=== PATIENT | male | born 1990 | race Caucasian/White ===

== ENCOUNTER 2017-03-19 00:15 | Emergency (ER) | payer SELFPAY ==
[~2017-03-19] VITALS: Ht 157.5 cm; Wt 63.6 kg
[2017-03-19 00:21] VITALS: Ht 157.5 cm; Wt 63.6 kg
[2017-03-19] MEDS ORDERED: ACETAMINOPHEN 500 MG TAB PO STA (06:16)
--- NOTE | 2017-03-19 06:45 | RADRPT ---
PROCEDURE: XR Chest. CLINICAL INDICATION: Chest pain TECHNIQUE: A single AP view of the chest was obtained. COMPARISON: None. FINDINGS: No focal airspace opacification, pleural effusion or pneumothorax is seen. The cardiomediastinal si lhouette is within normal limits for size. The osseous structures are unremarkable. IMPRESSION: No radiographic evidence of acute cardiopulmonary disease. RPTAT: HH .Tanya Bruno MD, MD Date Time Electronically viewed and signed by .Tanya Bruno MD, on 03/19/2017 06:45 .G/
[2017-03-19] MEDS ORDERED: ACET325T33 PO (07:19)
[2017-03-19] MEDS ORDERED: IBUP-1542 PO (07:19)
[2017-03-19 08:06] VITALS: BP 124/75; PULSE 74; RESP 19; TEMP 98.9
--- NOTE | 2017-03-19 08:40 | ERD ---
ER Documentation Chief Complaint Date/Time DATE: 03/19/17 TIME: 08:37 Chief Complaint C/O GENERALIZED BODY PAIN TODAY HPI This is a 26-year-old male presenting to the emergency department with multiple complaints. Patient states that he started having generalized body pain, non- radiating chest pain, shortness of breath, headache starting this morning. He denies any fevers, cough. Patient rates as 8 out of 10. He states that he has not taken any medications for this. He denies nausea vomiting abdominal pain ROS All systems reviewed and are negative except as per history of present illness. Medications Home Meds Active Scripts Acetaminophen* (Tylenol*) 325 Mg Tablet, 2 TAB PO Q4 Y for PAIN AND OR ELEVATED TEMP, #30 TAB Prov:BARRY HUNT PA-C 03/19/17 PMhx/Soc Medical and Surgical Hx: pt denies Medical Hx, pt denies Surgical Hx Hx Alcohol Use: No Hx Substance Use: No Hx Tobacco Use: No Smoking Status: Never smoker Physical Exam Vitals Vital Signs Date Time Temp Pulse Resp B/P Pulse Ox O2 Delivery O2 Flow Rate FiO2 03/19/17 08:06 98.9 74 19 124/75 100 Room Air 03/19/17 00:21 97.0 97 20 120/72 98 Physical Exam GENERAL: well-developed/well-nourished, in no apparent distress, non-toxic appearing HENT: NC/AT, bilateral tympanic membrane is normal with good cone of light, nares patent, oropharynx clear without exudates EYES: Conjunctiva normal, PERRLA, EOMI, no nystagmus noted NECK: Supple, no lymphadenopathy PULM: CTA bilaterally, no rales, rhonchi, or wheezing heard CV: Normal S1S2, RRR, good capillary refill GI: Soft, non-distended, normal bowel sounds, non-tender BACK: No midline tenderness, no masses, No CVAT EXT: No clubbing, cyanosis, or edema NEURO: Alert and orientated to person, place, and time. CN II-IIX intact. Gait and coordination were normal. Hand multimedia services manager strength were equal and within normal limits SKIN: Intact, normal turgor PSYCH: Normal mood and mentation, patient denied SI Results 24 hrs Laboratory Tests Test 03/19/17 06:38 Bedside Glucose 99mg/dL Current Medications Medications (Trade) Dose Ordered Sig/Tomy Route PRN Reason Start Time Stop Time Status Last Admin Dose Admin Acetaminophen (Tylenol Tab) 1,000 mg ONCE STAT PO 03/19/17 06:16 03/19/17 06:17 DC 03/19/17 06:33 Procedures/MDM This is a 26-year-old male presenting to the emergency department complaining of multiple symptoms including generalized body pain, chest pain, shortness of breath, headache. On examination patient appears well, he has stable vital signs. An EKG was done did not show any evidence of ACS or STEMI. Chest x-ray did not show any evidence of pneumonia, pleural effusion or pneumothorax. Accu- Chek was within normal limits. Patient was given Tylenol in the ED for generalized body pain, patient is suitable for outpatient follow-up with a primary care physician for further evaluation management. I discussed with him to return to the ER for any worsening sinus symptoms. Patient understands and agrees with this plan. stable discharged home Departure Diagnosis: Primary Impression: Multiple complaints Additional Impression: Chills (without fever) Condition: Stable Patient Instructions: Fever Control (Adult) Additional Instructions: Visite a [facility] para un EXAMEN.Regrese a estas instalaciones si no se mejora marisa esperbamos o marisa le dijimos. [place] toda la medicina shefali y marisa se le indic. Regrese a estas instalaciones si no se mejora marisa esperbamos o marisa le dijimos. BARRY HUNT PA-C March 19, 2017 08:40
== END 2017-03-19 08:07 | disposition home or self-care (01) ==
LOC: FTE 00:15
DX: R07.9 Chest pain, unspecified (principal); R68.83 Chills (without fever); R06.02 Shortness of breath; R51 Headache
CPT/HCPCS: 71010; 82962; 93005